=== PATIENT | male | born 1965 | race Caucasian/White ===

== ENCOUNTER 2022-06-04 15:09 | Emergency (ER) | payer SELFPAY ==
[2022-06-04] MEDS ORDERED: Ketamine 50 MG/ML (10ML VIAL) ONE (19:19)
[2022-06-04] MEDS ORDERED: Ketorolac Tromethamine 30 MG/ML VIAL ONE (21:21)
== END 2022-06-04 21:55 | disposition home or self-care (01) ==
LOC: CSHERS 15:09
DX: M62.838 Other muscle spasm (principal); J44.9 Chronic obstructive pulmonary disease, unspecified; I25.10 Atherosclerotic heart disease of native coronary artery without angina pectoris; F17.210 Nicotine dependence, cigarettes, uncomplicated
CPT/HCPCS: 96365; 96375; J1885